=== PATIENT | male | born 1960 | race Hispanic/Latino ===

== ENCOUNTER 2017-04-21 06:10 | Day surgery (SDC) | payer BC ==
[~2017-04-21 06:10] MED LIST: TETRACAINE 0.5% OD PRN; TETRACAINE 0.5% OD SCH
[2017-04-21] MEDS ORDERED: NACL BACTERIOSTATIC INFILTRATI ONE (06:31)
[2017-04-21] MEDS: AK-Dilate OD SCH ×3 (06:32→06:42)
[2017-04-21] MEDS: MYDRIACYL OD SCH ×3 (06:32→06:42)
[2017-04-21] MEDS: VIGAMOX OD SCH ×3 (06:32→06:42)
[2017-04-21] MEDS ORDERED: SUBLIMAZE ONE (07:06)
[2017-04-21] MEDS ORDERED: VERSED ONE (07:06)
--- NOTE | 2017-04-21 07:10 | Anesthesia Day of Surgery ---
Anesthesia Day of Surgery - Day of Surgery Patient Examined: Yes Patient H&P Reviewed: Yes Patient is NPO: Yes
--- NOTE | 2017-04-21 07:10 | Anesthesia Consultation ---
Anesthesia Consult and Med Hx Date of service: 04/21/17 - Airway Anesthetic Teeth Evaluation: Good ROM Head & Neck: Adequate Mental/Hyoid Distance: Adequate Mallampati Class: Class II Intubation Access Assessment: Probably Good - Pulmonary Exam CTA: Yes - Cardiac Exam Cardiac Exam: RRR - Pre-Operative Health Status ASA Pre-Surgery Classification: ASA2 Proposed Anesthetic Plan: MAC - Pulmonary Hx Smoking: Yes (former) - Central Nervous System Hx Psychiatric Problems: Yes - Other Systems Hx Alcohol Use: Yes (occas) Hx Cancer: Yes (melonoma removed from chest; skin CA from back)
[2017-04-21] MEDS ORDERED: PRED FORTE 1% ONE (08:17)
--- NOTE | 2017-04-21 08:21 | Post Anesthesia Evaluation ---
- Post Anesthesia Evaluation Patient Participated: Yes Airway Patent: Yes Stable Respiratory Function: Yes Nausea/Vomiting: No Temp > 96.8F: Yes Pain Manageable: Yes Adequeate Hydration: Yes Anesthesia Complications: No Block Receding Appropriately: Not Applicable Patient on Ventilator: No
[2017-04-21] MEDS ORDERED: PRED FORTE 1% OD SCH (08:30)
--- NOTE | 2017-04-21 08:31 | Operative Report ---
Operative Report Operative Report: PATIENT'S NAME: DATE OF : DATE OF SURGERY: 04/21/2017 PREOPERATIVE DIAGNOSIS: Cataract and Astigmatism right Eye POSTOPERATIVE DIAGNOSIS: Same OPERATIVE PROCEDURE: Phacoemulsification with intraocular lens implantation, right eye Toric SURGEON: Yuridia Carlos M.D. 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 A Nurse Life Science Teacher was utilized to regulate the intravenous sedation of the patient so the patient was cooperative yet not asleep in order for the patient to successfully maintain fixation of the eye on the operating light of the microscope. COMPLICATIONS: No surgical complications. No blood loss. ALLERGIES: Codeine PROGNOSIS: Excellent INDICATIONS FOR SURGERY: The patient is undergoing surgery in the hopes of eliminating or improving these visual difficulties. PROCEDURE: After arriving at the surgery center, the patient was given topical anesthetic and dilating drops, as noted in the record. The patient was then taken into the operating room and given more anesthetic drops. The eyelids , lashes, and lid margins were scrubbed with Betadine solution, and the patient was draped. The Nurse Life Science Teacher administered IV sedation and monitored the patient during the procedure. A speculum was placed between the eyelids, and the patient was asked to fixate on the light of the microscope. The patient has been noted to have pre-existing astigmatism as well as a concern to be left with as little astigmatism as possible after surgery in order to improve their uncorrected visual acuity after surgery.~ They have, therefore, elected to have our option for astigmatism management and have signed a waiver acknowledging their understanding of the process, its benefits and risks, and wish to proceed with this option. Based on the preoperative evaluation of the topography of their corneal mapping of astigmatism, the wound orientation, wound size, and use of a relaxing incision have been utilized to minimize their post operative astigmatism. In some cases a toric, or astigmatic , intraocular lens implant may be used in conjunction with a relaxing incision or in place of one. When an astigmatic lens is used, preoperative evaluation of the topography with careful planning of the lens position and power of the astigmatic correction by lens are all done. ~The calculation of the lens power for the astigmatic correction and the lens orientation of the astigmatic lens is performed separately and subsequently from the normal lens power calculation for the standard cataract lens power needed for standard surgery without astigmatism management. ~In fact, the toric lens power calculation can not be done until the standard lens power calculations are performed and finished - so that is a totally separate part of the preoperative planning. The eye was then fixated with a round vickers, which would damage the conjunctival tissues or vessel, and a stab incision was made in the peripheral clear cornea into the anterior chamber. Viscoelastic was next used to fill the anterior chamber. The eye was once again fixated with the round vickers and a keratome was used make an incision in clear cornea peripherally on my right hand side temporally. Hydrodissection was carried out utilizing a U-shaped cannula and balanced salt solution to delineate the cortical material from the capsule and the nucleus from the cortical material. The phaco tip was introduced into the eye and used to remove the anterior cortical material in the area of the capsulotomy. Then the phaco tip was buried into the nucleus, and a chopping instrument was introduced into the eye and used to provide countertraction in the nucleus between this instrument and the phaco tip fracturing the nucleus. This procedure was repeated multiple times, providing multiple small segments of the lens, and then the phaco tip was used to remove each of these segments. An I/A tip was then used to remove the remaining cortex. An one-piece, acrylic intraocular lens was then placed into an inserting cartridge. The tip of the inserting cartridge was introduced into the keratome incision and into the anterior chamber. The implant was gently advanced through the cartridge and into the eye, where it unfolded, and both haptics were placed in the capsular bag, where it centered nicely and appeared to be well fixated. Prior to prepping the patient, the patient was asked to sit up on the operative bed and look across the room. ~Utilizing a special marking instrument, the cardinal meridians at 3:00, 6:00, and 9:00 were marked with Gentian kim.~ These joe were used later in the surgery as reference joe to identify the proper location of the axis for the placement of the astigmatic, or toric, intraocular lens.~ The axis was marked with Gentian kim prior to entering the eye.~ After placement of the intraocular lens implant and removal of the viscoelastic from both the capsular bag and anterior chamber, the lens was positioned so it was perfectly aligned along this axis. The orientation was rechecked once the wounds were hydrated and the integrity of the wounds was verified. After placement of the intraocular lens, the I~and~A handpiece was placed back into the eye and used to remove the viscoelastic, including viscoelastic that was behind the optic of the intraocular lens. The anterior chamber was then filled with balanced salt solution, and hydration of the wound was used to cause swelling of the wound and more appropriate watertight closure. When the wound was found to be firm, the patient was asked to comment on how bright the light was. If there was no light perception at all or if the light was substantially dimmer than during the rest of the surgery, the amount of fluid in the eye was decompressed to lower the intraocular pressure until the patient could see the bright light again. This was done to avoid any damage or decreased blood flow to the optic nerve. MEDICATIONS APPLIED AT END OF SURGERY: One drop vigamox and Pred Forte The patient was given a shield to wear at night and was instructed not to rub or push on the eye. DISCHARGE SUMMARY: The patient was released in stable condition. The patient and those with the patient were given a written sheet of postoperative instructions and counseling on any abnormal laboratory studies. The patient is to see us tomorrow for follow-up in the office and is to call immediately for any difficulties. Yuridia Carlos M.D. Date
--- NOTE | 2017-04-21 08:33 | Short Stay Summary ---
Short Stay Documentation Date of service: 04/21/17 - History H&P: obtained from office - Allergies and Medications Current Medications: Allergies codeine Allergy (Verified 04/19/17 16:08) Itching Home Medications Medication Instructions Recorded Confirmed Last Taken Type Bupropion HCl [Bupropion HCl Sr] 150 mg PO DAILY 04/19/17 04/19/17 04/20/17 History Buspirone HCl [busPIRone] 20 mg PO HS 04/19/17 04/19/17 04/20/17 History Cholecalciferol Vit D3 [Vitamin D3] 1,000 unit PO QDAY 04/19/17 04/19/17 History Lisdexamfetamine Dimesylate 70 mg PO QAM 04/19/17 04/19/17 04/20/17 History [Vyvanse] Lysine 1,000 mg PO DAILY 04/19/17 04/19/17 04/20/17 History Magnesium Oxide [Magnesium] 1,000 mg PO DAILY 04/19/17 04/19/17 04/20/17 History Melatonin 3 tab PO HS 04/19/17 04/19/17 04/20/17 History Multivitamin Tab [Multiple Vitamin 1 each PO QDAY 04/19/17 04/19/17 04/20/17 History TAB (Theragran)] [place]-3 Fatty Acids/Fish Oil [Fish 2 each PO DAILY 04/19/17 04/19/17 04/20/17 History Oil] Potassium Chloride [Klor-Con 10] 10 meq PO DAILY 04/19/17 04/19/17 04/20/17 History Simvastatin [Zocor TAB] 20 mg PO QHS 04/19/17 04/19/17 04/20/17 History Zinc [Zinc Chelated] 400 mg PO DAILY 04/19/17 04/19/17 04/20/17 History Zolpidem [Ambien] 5 mg PO QHS PRN 04/19/17 04/19/17 04/20/17 History Active Medications Moxifloxacin HCl (Vigamox) 1 drops OD Q5MIN MAKENZIE Stop: 04/23/17 06:01 Last Admin: 04/21/17 06:42 Dose: 1 drops Phenylephrine HCl (Ak-Dilate) 1 drops OD Q5MIN MAKENZIE Stop: 04/23/17 06:01 Last Admin: 04/21/17 06:42 Dose: 1 drops Prednisolone Acetate (Pred Forte 1%) 1 drops OD QID MAKENZIE Tetracaine HCl (Tetracaine 0.5%) 1 drops OD Q5M PRN PRN Reason: Analgesia Last Admin: 04/21/17 06:31 Dose: 1 drops Tropicamide (Mydriacyl) 1 drops OD Q5MIN MAKENZIE Stop: 04/23/17 06:01 Last Admin: 04/21/17 06:42 Dose: 1 drops - Brief post op/procedure progress note Date of procedure: 04/21/17 Pre-op diagnosis: cataract and astigmatism right eye Post-op diagnosis: same Procedure: Phacoemulsification with toric lens insertion right eye Anesthesia: MAC Surgeon: SHARON HUTSON Estimated blood loss: none Pathology: none Condition: stable - Disposition Condition at discharge: Good Disposition: DC-01 TO HOME OR SELFCARE - Discharge Diagnoses (1) Cataract Status: Resolved Qualifiers: Cataract type: age-related Age-related cataract type: nuclear Infantile/ juvenile cataract type: I Traumatic cataract type: T Complicated cataract type: C Secondary cataract type: S Laterality: right Qualified Code(s): H25.11 - Age-related nuclear cataract, right eye (2) Astigmatism of right eye Status: Resolved Qualifiers: Astigmatism type: regular Qualified Code(s): H52.221 - Regular astigmatism , right eye Short Stay Discharge Plan Follow up with: PRIMARY CAREMD [Primary Care Provider] - 7 Days
[2017-04-21 08:39] VITALS: BP 126/85
== END 2017-04-21 09:18 | disposition home or self-care (01) ==
LOC: OR 06:10
DX: H26.9 Unspecified cataract (principal); H52.201 Unspecified astigmatism, right eye; I10 Essential (primary) hypertension; Z79.899 Other long term (current) drug therapy; Z88.5 Allergy status to narcotic agent; Z87.891 Personal history of nicotine dependence; Z72.89 Other problems related to lifestyle; Z85.820 Personal history of malignant melanoma of skin
CPT/HCPCS: 66984; 66999; J2250; J3010; V2632